=== PATIENT | female | born 1950 | race Caucasian/White ===

== ENCOUNTER 2018-07-20 12:27 | Emergency (ER) | payer OTHER ==
[2018-07-20 12:35] VITALS: BMI 28.3
--- NOTE | 2018-07-20 12:41 | PDOC ---
History of Present Illness - General Chief Complaint: Pain, Acute Stated Complaint: SHOULDER INJURY Time Seen by Provider: 07/20/18 12:40 History Source: Patient Exam Limitations: No Limitations - History of Present Illness Initial Comments: Pt is a 67 yo F, with PMH of NIDDM, HLD, RA, and osteoporosis, who is presenting via EMS with complaints of R shoulder pain. Pt was throwing a wet piece of laundry over the door, when she felt her shoulder "pop out". She denies any trauma or falls. Pt states she has had this happen to her R shoulder ~5 times, but has always had it reduced at another hospital as she just moved to [place]. Pt states they gave her "a medication to make her sleep" and the shoulder is reduced when she wakes up. Pt denies any recent fevers/chills, headache, vision changes, syncope, chest pain, palpitations, SOB, nausea/ vomiting, abdominal pain, urinary symptoms, diarrhea/constipation, or leg swelling. Social: Pt denies any cigarette, alcohol, or drug use. Pt denies any recent travel or sick contacts. Surgical: no relevant history. Family: no relevant history. 07/20/18 18:27 Past History - Travel Traveled outside of the country in the last 30 days: No Close contact w/someone who was outside of country & ill: No - Past Medical History Allergies/Adverse Reactions: Allergies Allergy/AdvReac Type Severity Reaction Status Date / Time No Known Allergies Allergy Verified 07/20/18 12:31 COPD: No Diabetes: Yes (NIDDM) Hypercholesterolemia: Yes Other medical history: RA - Suicide/Smoking/Psychosocial Hx Smoking History: Never smoked Hx Alcohol Use: No Drug/Substance Use Hx: No Review of Systems - Review of Systems Able to Perform ROS?: Yes Is the patient limited Par[place] proficient: No Constitutional: Yes: Weight Stable. No: Chills, Diaphoresis, Fever, Loss of Appetite, Malaise, Weakness HEENTM: No: Recent change in vision, Nose Pain, Nose Congestion, Throat Pain, Throat Swelling Respiratory: No: Cough, Shortness of Breath Cardiac (ROS): No: Chest Pain, Edema, Irregular Heart Rate, Lightheadedness, Palpitations, Syncope, Chest Tightness ABD/GI: No: Constipated, Diarrhea, Nausea, Poor Appetite, Poor Fluid Intake, Vomiting : No: Burning, Dysuria, Pain, Urgency Musculoskeletal: Yes: See HPI, Joint Pain. No: Back Pain, Joint Swelling, Muscle Pain, Muscle Weakness Integumentary: No: Bruising, Erythema, Lumps, Rash Neurological: No: Headache, Numbness, Paresthesia, Tingling, Weakness, Dizziness Psychiatric: No: Sleep Pattern Change, Change in Appetite Endocrine: No: Increased Urine, Change in Weight Hematologic/Lymphatic: No: Anemia, Blood Clots, Easy Bleeding, Easy Bruising *Physical Exam - Vital Signs Last Vital Signs Temp Pulse Resp BP Pulse Ox 99.3 F 93 H 20 156/87 98 07/20/18 12:32 07/20/18 12:32 07/20/18 12:32 07/20/18 12:32 07/20/18 12:32 - Physical Exam Comments: 07/20/18 18:32 BP 172/90, HR 108, pt afebrile. Pt appears uncomfortable, holding R arm abducted against chest in a cloth sling. Normal body habitus. PE showed pt alert and oriented. 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 R shoulder deformed, no crepitus of clavicle or skin tenting. Strength and sensation of radial, ulnar, and median distributions intact in b/l UEs. Radial pulses intact and strong b/l. Pt cannot move the R arm at the shoulder, but movements of wrist, hand, and fingers intact. Eyes PERRLA, EOMI. Oropharynx without erythema or exudates, no LAD b/l. No nasal congestion, hearing intact. Clear heart sounds, S1/S2, no JVD, b/l pedal edema, or heart murmur. Clear lung sounds, no respiratory distress, wheezes, crackles, or accessory muscle use. No abdominal or CVA tenderness to palpation, no rebound, no guarding. Abdomen soft , non-distended, and with normoactive bowel sounds. Skin without jaundice or rash. Moderate Sedation - Procedure Monitoring Vital Signs: Procedure Monitoring Vital Signs Temperature 99.3 F 07/20/18 12:32 Pulse Rate 93 H 07/20/18 12:32 Respiratory Rate 20 07/20/18 12:32 Blood Pressure 156/87 07/20/18 12:32 O2 Sat by Pulse Oximetry (%) 98 07/20/18 12:32 Post-procedure vitals: HR 90, BP 132/92, RR 18, O2 97% on RA. 07/20/18 18:32 - Post Procedure Assessment Tolerated procedure well: Yes Was a reversal agent used?: No Patient evaluation: Awake, alert and oriented, Vital signs reviewed, Cardiopulmonary exam normal, Pain controlled Printed Discharge Instructions given: Yes Procedures - Joint Reduction Right Joint Reduction Site: right: Shoulder Pre-Procedure NV Exam: normal Conscious Sedation: Yes Reduction Attempts: 3 (2 with morphine, 1 under sedation) Anesthetic: 1% Lidocaine (4 cc lidocaine into joint space) Amount (mL): 4 Anesthesia: Fentanyl (25 mg) Procedure: Traction Counter Traction Post-Procedure NV Exam: normal Complications: No Post Joint Reduction Film: joint reduced Splint: Yes Immobilized: No Medical Decision Making - Medical Decision Making Pt was seen at bedside, also will be seen by attending Dr. Hawkins. Pt presenting via EMS with complaints of R shoulder pain. Pt was throwing a wet piece of laundry over the door, when she felt her shoulder "pop out". She denies any trauma or falls. Pt states she has had this happen to her R shoulder ~5 times, but has always had it reduced at another hospital as she just moved to [place]. Pt states they gave her "a medication to make her sleep" and the shoulder is reduced when she wakes up. Pt denies any recent fevers/chills, headache, vision changes, syncope, chest pain, palpitations, SOB, nausea/ vomiting, abdominal pain, urinary symptoms, diarrhea/constipation, or leg swelling. BP 172/90, HR 108, pt afebrile. Pt appears uncomfortable, holding R arm abducted against chest in a cloth sling. Normal body habitus. PE showed pt alert and oriented. 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 R shoulder deformed, no crepitus of clavicle or skin tenting. Strength and sensation of radial, ulnar, and median distributions intact in b/l UEs. Radial pulses intact and strong b/l. Pt cannot move the R arm at the shoulder, but movements of wrist, hand, and fingers intact. Eyes PERRLA, EOMI. Oropharynx without erythema or exudates, no LAD b/l. No nasal congestion, hearing intact. Clear heart sounds, S1/S2, no JVD, b/l pedal edema, or heart murmur. Clear lung sounds, no respiratory distress, wheezes, crackles, or accessory muscle use. No abdominal or CVA tenderness to palpation, no rebound, no guarding. Abdomen soft , non-distended, and with normoactive bowel sounds. Skin without jaundice or rash. Considering R anterior shoulder dislocation (anterior vs posterior) vs fracture vs rotator cuff tendon injury. Ordered R shoulder x-ray to r/o fracture dislocation. Provided 4 mg IV morphine for improvement of pain. Will continue to reassess pt and monitor for symptomatic improvement. 07/20/18 13:31 X-ray showed R anterior shoulder dislocation with no obvious fractures. Pt signed consent form for procedural sedation and shoulder reduction. Procedural sedation successful with 25 mg IV fentanyl and 70 mg IV ketamine. Please see sedation note and reduction note. Post reduction x-ray showed successful reduction, possible hill-sachs on humeral head. Pt comfortable in sling. Pts daughter in department to drive pt home. Pt can be discharged to home with follow-up. Pt advised to follow-up with PCP in 1-2 days and has been referred to orthopedics (Dr. Pearce). Strict return precautions provided with pt understanding. 07/20/18 16:58 07/20/18 18:25 07/20/18 18:33 *DC/Admit/Observation/Transfer Diagnosis at time of Disposition: Shoulder dislocation Qualifiers: Encounter type: initial encounter Laterality: right Qualified Code(s): S43.004A - Unspecified dislocation of right shoulder joint, initial encounter - Discharge Dispostion Disposition: HOME Condition at time of disposition: Improved Decision to Admit order: No - Referrals Referrals: Dusty Pearce MD [Staff Physician] - Meir Lopez MD [Primary Care Provider] - [facility] [Provider Group] - Patient Instructions Printed Discharge Instructions: DI for Shoulder Dislocation, DI for Moderate Sedation Additional Instructions: You were seen in the ER today for a shoulder dislocation. The results of your imaging today showed a dislocation of your right shoulder, which improved after we reduced it. Please follow-up with your primary care doctor and Dr. Pearce within 1-2 days to discuss your visit and make sure your symptoms have improved. Please continue to use the sling until you can see orthopedics. Please return to the ER if you have any worsening pain, numbness/coldness/ weakness of your right arm or hand, development of fevers or chills, loss of consciousness, inability to tolerate food or fluids, or any other concerns. You can take tylenol at home with warm or cold compresses as needed for pain. - Post Discharge Activity
[2018-07-20] MEDS ORDERED: morphine SULFATE 4 MG/ML VIAL IVPUSH ONE (12:51)
[2018-07-20] MEDS ORDERED: morphine CARPU-JECT 2 MG/1 ML DISP.SYRIN IM ONE (13:11)
[2018-07-20] MEDS ORDERED: morphine CARPU-JECT 4 MG/1 ML DISP.SYRIN IVPUSH ONE ×2 (13:29→14:38)
[2018-07-20] MEDS ORDERED: morphine SULFATE 4 MG/ML VIAL ONE ×2 (13:30→14:40)
[2018-07-20] MEDS ORDERED: LIDOCAINE HCL 1%, 10 MG/ML (20ML VIAL) ONE (14:21)
--- NOTE | 2018-07-20 14:44 | PDOC ---
Attending Attestation - Resident Resident Name: Brittny Fernandez - ED Attending Attestation I have performed the following: I have examined & evaluated the patient, The case was reviewed & discussed with the resident, I agree w/resident's findings & plan, Exceptions are as noted - HPI HPI: 07/21/18 12:28 agree with resident HPI - Physicial Exam PE: 07/20/18 16:07 GENERAL: Awake, alert, and fully oriented, appears uncomfortable EYES: PERRLA, EOMI, sclera anicteric, conjunctiva clear ENT: Oropharynx clear without exudates. Moist mucosa NECK: Normal ROM, supple, no lymphadenopathy, JVD, or masses LUNGS: Breath sounds equal, clear to auscultation bilaterally. No wheezes, and no crackles HEART: Regular rate and rhythm, normal S1 and S2, no murmurs, rubs or gallops ABDOMEN: Soft, nontender, normoactive bowel sounds. No guarding, no rebound. No masses EXTREMITIES: RUE with shoulder deformity. Unable to range at R shoulder. 2+ radial pulse. Normal sensation and strength to distal RUE. No ttp or deformity over AC joint. NEUROLOGICAL: Normal speech, cranial nerves intact. Intact sensation over R deltoid SKIN: Warm, Dry, normal turgor, no rashes or lesions noted. - Medical Decision Making 07/20/18 16:19 67yo F hx shoulder dislocation x5 presents to the ED with R shoulder dislocation. RUE with 2+ radial pulse and normal sensation and strength distally After intra-articular lidocaine with 8mg IV morphine, attempted DAVOS technique , however due to RA, pt was not able to bring wrists together Attempted downward tract and external rotation, but due to significant pain, we decided to do moderate sedation Pt was given fentanyl 25mcg as well as ketamine 75mg with good response Monitored with end tidal CO2 After traction/counter traction, shoulder reduced successfully. RUE placed in sling, 2+ radial pulse and normal strenth and sensation in RUE Pt awake within minutes after reduction, saying she feels much better Post reduction film on my read with good reduction Vitals are stable, pt tolerating PO Given referral to ortho and PMD, return precautions given as well I discussed the physical exam findings, ancillary test results and final diagnoses with the patient. I answered all of the patient's questions. The patient was satisfied with the care received and felt comfortable with the discharge plan and treatment plan. The patient will call their primary care physician within 24 hours to arrange follow-up and will return to the Emergency Department with any new, persistent or worsening symptoms. Stable for DC home
[2018-07-20] MEDS ORDERED: KETAMINE HCL 200 MG/20 ML VIAL IVPUSH ONE (15:00)
[2018-07-20] MEDS ORDERED: KETAMINE HCL 200 MG/20 ML VIAL ONE (15:12)
[2018-07-20 17:42] VITALS: BP 132/92; PULSE 90
[2018-07-20 19:27] VITALS: TEMP 99.2
== END 2018-07-20 17:35 | disposition home or self-care (01) ==
LOC: JER 12:27
PROC: 0RSJXZZ Reposition Right Shoulder Joint, External Approach (ICD-10-PCS; principal; 2018-07-20)
DX: M24.411 Recurrent dislocation, right shoulder (principal); X50.0XXA Overexertion from strenuous movement or load, initial encounter; Y93.89 Activity, other specified; Y92.038 Other place in apartment as the place of occurrence of the external cause; Y99.8 Other external cause status; E11.9 Type 2 diabetes mellitus without complications; E78.5 Hyperlipidemia, unspecified; M06.80 Other specified rheumatoid arthritis, unspecified site; M19.90 Unspecified osteoarthritis, unspecified site
CPT/HCPCS: 23650; 73030-TC-RT-FY; 96374; 96375; 96376; 99283-25

== ENCOUNTER 2019-01-15 06:06 | Inpatient (IN) | payer OTHER ==
[2019-01-14 11:38] VITALS: BMI 26.7
[2019-01-15] MEDS ORDERED: DEXAMETHASONE SOD PHOSPHATE/PF 10 MG/ML SDV ONE (07:33)
[2019-01-15] MEDS ORDERED: ROPIVACAINE HCL 0.5% 30ML VIAL ONE (07:33)
[2019-01-15] MEDS ORDERED: MIDAZOLAM HCL 2 MG/2 ML SINGLE DOSE VIAL ONE ×3 (07:34→07:55)
[2019-01-15] MEDS ORDERED: EPHEDRINE SULFATE/0.9% NACL/PF 50 MG/10 ML SYRINGE NR ONE (07:50)
[2019-01-15] MEDS ORDERED: SUCCINYLCHOLINE CHLORIDE 200 MG/10 ML SYRINGE ONE (07:50)
[2019-01-15] MEDS ORDERED: PROPOFOL 20 ML ONE (07:50)
[2019-01-15] MEDS ORDERED: LIDOCAINE HCL/PF 2% SDV 5ML VIAL ONE (07:51)
[2019-01-15] MEDS ORDERED: ROCURONIUM BROMIDE 50 MG/5 ML SYRINGE ONE (07:51)
--- NOTE | 2019-01-15 08:15 | HP ---
Satellite [facility] - Chief Complaint Chief Complaint: right shoulder pain History of Present Illness: right shoulder OA History Source: Patient Limitations to Obtaining History: No Limitations - Past Medical History Allergies/Adverse Reactions: Allergies Allergy/AdvReac Type Severity Reaction Status Date / Time No Known Allergies Allergy Verified 01/15/19 06:30 - Current Medications Current Medications: Home Medications Medication Instructions Recorded Sitagliptin Phos/Metformin HCl 1 each PO BID 01/14/19 [Janumet 50-1,000 mg Tablet] Atorvastatin Ca [Lipitor] 80 mg PO HS 01/15/19 Fenofibrate,Micronized 134 mg PO DAILY 01/15/19 [Fenofibrate] Satellite Physical Exam - Physical Examination Vital Signs: Vital Signs Period Temp Pulse Resp BP Sys/Sweet Pulse Ox Last 24 Hr 97.7 F 76 18 125/63 General Appearance: Well Nourished ENT: Clear Lung: Clear to auscultation Heart: Regular rate & rhythm Breasts: Soft Abdomen: Soft Extremities: No edema Satellite Impression/Plan - Impression/Plan Impression: right shoulder pain, OA Operative Procedure: right reverse Total shoulder replacement Date to be Performed: 01/15/19
[2019-01-15] MEDS ORDERED: ceFAZolin SODIUM 1 GM VIAL IVPB ONE (08:35)
[2019-01-15] MEDS ORDERED: ONDANSETRON 4 MG/2 ML VIAL IVPUSH PRN (08:36)
[2019-01-15] MEDS ORDERED: ceFAZolin SODIUM 1 GM VIAL ONE ×2 (08:37→15:17)
[2019-01-15] MEDS ORDERED: DEXAMETHASONE SOD PHOSPHATE 4 MG/1 ML VIAL ONE (08:40)
--- NOTE | 2019-01-15 10:12 | OP ---
Operative Note - Note: Operative Date: 01/15/19 Pre-Operative Diagnosis: right shoulder arthritis Operation: right reverse Total Shoulder Replacement Implants: [employer] Reverse Total Shoulder Replacement: size 32 Glenosphere, 9mm stem, size 4 base plate, 6mm polyethylene Surgeon: Nilay Cabello Estimator Project Manager: Reji Neely Anesthesiologist/LENS SHAPER GRINDER: Fermín Garner Anesthesia: General, Local Specimens Removed: humeral head Estimated Blood Loss (mls): 100 Drains, Volume Out (mls): 0 Blood Volume Replaced (mls): 0 Fluid Volume Replaced (mls): 1,000 Operative Report Dictated: Yes
[2019-01-15] MEDS ORDERED: ACETAMINOPHEN INJECTION 100 ML IVPB ONE (10:29)
[2019-01-15] MEDS: LACTATED RINGERS SOLUTION 1,000 ML IV SCH (10:45)
[2019-01-15] MEDS: ACETAMINOPHEN 1000 MG/100 ML VIAL (NON FORMULARY) IVPB ONE ×2 (11:15→15:56)
--- NOTE | 2019-01-15 13:31 | SPEC ---
DATE OF OPERATION: 01/15/2019 PREOPERATIVE DIAGNOSIS: Right shoulder glenohumeral osteoarthritis. POSTOPERATIVE DIAGNOSIS: Right should glenohumeral osteoarthritis. PROCEDURE: Right reverse total shoulder replacement. SURGEON: Brissa Tamayo MD FOOTBALL PAD REPAIRER: DIONE Joiner ANESTHESIOLOGIST: Fermín Garner MD ANESTHESIA: Right interscalene block with LMA anesthesia. DRAINS: None. COMPLICATIONS: None. BLOOD LOSS: 100 mL. BLOOD GIVEN: None. SPECIMEN: Humeral head. INDICATION: This patient is a 68-year-old female with a preoperative diagnosis of severe right shoulder glenohumeral osteoarthritis. After understanding the potential risk, complications, alternatives, and benefits of surgical versus nonsurgical treatment. The patient elected to proceed with the procedure. DESCRIPTION OF PROCEDURE: The patient was brought into the operating room, peripheral IV placed and IV sedation given. Ancef 2 g were given. A right interscalene block was performed, and general anesthesia was induced. She was placed into the beach chair position with ample padding throughout. The right upper extremity was prepped and draped in a sterile fashion. A deltopectoral approach incision was marked out using the coracoid and mid aspect of the proximal humerus as landmarks. The incision was made with the No. 15 scalpel blade. Subcutaneous hemostasis was achieved with a Bovie cautery. Dissection was done through the superficial fascia. Blunt dissection was done with my finger in the deltopectoral interval. The cephalic vein was retracted medially. The Gelpi self-retaining retractors were placed into the wound. I found the conjoined tendon off the coracoid and used the Bovie to incise lateral to it. I was then able to cut down to bone and preserve the medial and lateral capsular flaps. The rotator cuff subscapularis was very deficient. I then peeled the soft tissues, including the anterior aspect of the deltoid insertion off the humerus. The biceps tendon was seen to be frayed, degenerated out of its groove, and therefore I did a biceps tenolysis. Appropriate Fukuda and pickle-fork retractors were placed into the wound, exposing the proximal humerus. I was able to easily dislocate it anteriorly. It was extremely arthritic. Next, using the external guide and a broach, I used the oscillating saw to do a cut at the articular margin. Osteophytes were removed with the rongeur. Some soft tissue was removed with the Bovie. I was able to expose the proximal humerus quite well. Next, using the standard technique, using the [employer] Reverse Total Shoulder Replacement System, we used first the starting awl and then the sequential hand broaches until we had cortical chatter. Then we used the humeral stem-shape broaches and mallet. We eventually seated a 15-size stem that had excellent cortical contact and was very stable throughout. We did not need to use the calcar reamer as the humeral cut was at the right angle. Next, our attention was turned to the glenoid. The Bovie was used to remove soft tissue, including some capsular attachments and the labrum. Retractors were placed into the wound to retract the humerus and expose the glenoid. With excellent direct visualization, we then put on the glenoid glenosphere, lining it up appropriately and put in the 3.2-mm guidewire. We went through 2 cortices. We then used the guidewire to do the glenoid reamer. We were able to ream the glenoid until we got bleeding subchondral bone. More bone was taken inferiorly than superiorly, but it was concentric. The guidewire was then removed, and we put on the actual 28-mm glenoid baseplate, held it in place with a 28-mm central screw. Then using the typical standard technique, we put in superior, inferior, and posterior screws, which were 28, 28, and 16 mm in length, respectively. We had excellent compression of the glenoid baseplate against the glenoid and overall concentric fit. Next, we put on a 32-mm glenosphere. This was the actual implant, impacted in place, and it was quite stable. Next, our attention was turned to the humerus. We cleaned up the humeral shaft, put in an actual size-9 humeral short-stem press-fit porous-coated stem and used the mallet to put it down to the appropriate level. A 4-mm baseplate and 6-mm polyethylene. We then trialed the size of the humeral glenosphere, and it ended up being a 32-mm implant. It was extremely stable. In fact, it was very difficult to dislocate. Next, this trial was removed, and the actual 36-mm humeral glenosphere was placed on, it was reduced, and was extremely stable throughout. The area was copiously irrigated and washed out. The capsule was closed anteriorly with several No. 1 Ti-Cron sutures, the deep fascial layer closed with No. 1 Ti-Cron, and the superficial deltoid fascia closed with 0 Vicryl suture. A 2-0 Vicryl was used to close the deep dermal layer, and final skin reapproximation was done with a running subcuticular 3-0 V-Loc suture. The area was then washed and dried, covered with a 10-inch Aquacel dressing. The patient was extubated. There was total blood loss of 100 mL. There were no complications during the case. The shoulder immobilizer was placed in the operating room, and she was brought to the regular recovery room in stable condition. Total surgical time was 1 hour. BRISSA TAMAYO M.D. [id number]
[2019-01-15] MEDS: CEFAZOLIN 2 GM/D5W 2 GM/50 ML ML IVPB SCH (15:30)
[2019-01-15] MEDS ORDERED: CEFAZOLIN 2 GM in DEXTROSE 5%-WATER - 50 ML IVPB SCH (16:00)
[2019-01-15] MEDS: oxyCODONE HCL 5 MG TABLET PO PRN (17:33)
[2019-01-15] MEDS ORDERED: PATIENT'S OWN MEDICATION (NON-FORMULARY) (Sitagliptin Phos/Metformin Hcl [Janumet 50-1,000 PO SCH ×3 (22:00)
[2019-01-15] MEDS ORDERED: ATORVASTATIN CA 80 MG TABLET (FP) PO SCH (22:00)
[2019-01-16] MEDS: CEFAZOLIN 2 GM/D5W 2 GM/50 ML ML IVPB SCH ×2 (00:17→08:46)
[2019-01-16] MEDS: oxyCODONE HCL 5 MG TABLET PO PRN ×4 (05:22→14:26)
[2019-01-16] MEDS: LACTATED RINGERS SOLUTION 1,000 ML IV SCH ×2 (05:26→08:45)
--- NOTE | 2019-01-16 09:26 | PN ---
Progress Note (short form) - Note Progress Note: Ortho Pt seen and examined s/p right reverse TSA pod #1 Selected Entries 01/16/19 08:54 Temperature 98 F Pulse Rate 77 Respiratory 18 Rate Blood Pressure 106/72 dressing c/d/i, good rom of elbow, wrist and hand nvi a/p PT pain control d/c home today f/u in 1 week
--- NOTE | 2019-01-16 09:27 | DS ---
Physical Examination Vital Signs: Vital Signs Temperature 98 F 01/16/19 08:54 Pulse Rate 77 01/16/19 08:54 Respiratory Rate 18 01/16/19 08:54 Blood Pressure 106/72 01/16/19 08:54 O2 Sat by Pulse Oximetry (%) 98 01/15/19 21:00 Discharge Summary Reason For Visit: OSTEOARTHRITIS Procedures: Principal: right reverse TSA Hospital Course: admitted for elective right reverse TSA, post- op course as per protocol, stable for d/c Condition: Good - Instructions Diet, Activity, Other Instructions: Post -op Instruction Sheet - Shoulder Surgery - You have been placed in a sling. As long as you are wearing this, your shoulder is well protected. You may come out of the sling to dress , or do exercises as directed. You may bend and straighten the elbow, and move your wrist and fingers. Please sleep with the sling on. You may find it more comfortable to sleep with a small pillow behind your elbow, or in a recliner. To wash your armpit, you may lean slightly forward and let your arm dangle slightly away from your side and wash with a washcloth. - Use an ice bag/pack on the shoulder for 15 minutes every 2 hours. - Pain medication was sent to your Pharmacy. - Keep your dressing clean and dry. Please call the office to make an appointment for 1 week after surgery. Your dressing will be removed at that time. - No Lifting. - Starting 1-2 days after surgery, you may take your arm out of the sling 3 times a day to bend and straighten your elbow and wrist to prevent stiffness. - Please call the office at [phone] if there are any questions or concerns. Referrals: Nilay Cabello MD [Staff Physician] - - Home Medications Comprehensive Discharge Medication List: Ambulatory Orders Sitagliptin Phos/Metformin HCl [Janumet 50-1,000 mg Tablet] 1 each PO BID Atorvastatin Ca [Lipitor] 80 mg PO HS 01/15/19 Fenofibrate,Micronized [Fenofibrate] 134 mg PO DAILY 01/15/19 Hydrocodone/Acetaminophen [Hydrocodone-Acetamin 5-325 mg] 1 each PO Q6H #40 tablet MDD 4 01/15/19
[2019-01-16] MEDS ORDERED: PT OWN MED DRAWER 7, Y5N ONE (09:28)
[2019-01-16] MEDS ORDERED: FENOFIBRIC ACID 135 MG CAP PO SCH (10:00)
[2019-01-16 12:18] LABS: HEMATOCRIT 31.2 % (32.4-45.2); HEMOGLOBIN 10.6 GM/dL (10.7-15.3); MCH 30.3 pg (25.7-33.7); MEAN CELL VOLUME 89.2 fl (80-96); MEAN PLT VOLUME 8.9 fl (7.5-11.1); PLATELET COUNT 171 K/MM3 (134-434); RDW 13.9 % (11.6-15.6)
[2019-01-16] MEDS ORDERED: PATIENT'S OWN MEDICATION (NON-FORMULARY) (Sitagliptin Phos/Metformin Hcl [Janumet 50-1,000 PO SCH (12:45)
[2019-01-16 14:23] VITALS: BP 112/62; PULSE 75; TEMP 98.1
--- NOTE | 2019-01-17 18:07 | PATH ---
Surgical Pathology Report Patient Name: CRISTÓBAL IYER Med. Rec. #: [id number] /Age/Gender: 1950 (Age: 68) / F Account: <[id number]> Location: AMBULATORY SURG Taken: 01/15/2019 Received: 01/15/2019 Reported: 01/17/2019 Physicians: Nilay Cabello M.D. Specimen(s) Received HUMERAL HEAD Clinical History Right shoulder osteoarthritis Final Diagnosis BONE, HUMERAL HEAD, RIGHT, REVERSE TOTAL SHOULDER REPLACEMENT: BONE WITH DEGENERATIVE JOINT DISEASE. Electronically Signed Carrol Thapa M.D. Gross Description Received in formalin, labeled "humeral head," is a 4.5 x 4.0 x 4.0 cm. humeral head. The margin of resection is smooth. There is a 4 cm in greatest dimension area of eburnation present. The remaining articular surface is juarez-brown and focally granular. The underlying trabecular bone is yellow and hard. A pharmaceutical representative section is submitted in one cassette, following decalcification. ERIN/01/15/2019 dean/01/15/2019
== END 2019-01-16 15:48 | disposition home or self-care (01) | DRG 483 ==
LOC: JSAMEDAYSX 06:06 → UNDOADMIN 06:06 → JASUSAT 06:06 → EDSTATUS 08:00 → J6W 15:30 → JSAMEDAYSX 15:30 → J6W 15:31 → J6S 15:31 → JASUSAT 18:14 → J6S 18:14
PROVIDERS: ADMIT Orthopaedic Surgery; ATTEND Orthopaedic Surgery
PROC: 0RPJ0JZ Removal of Synthetic Substitute from Right Shoulder Joint, Open Approach (ICD-10-PCS; 2019-01-15)
PROC: 0RRJ0JZ Replacement of Right Shoulder Joint with Synthetic Substitute, Open Approach (ICD-10-PCS; principal; 2019-01-15 08:00)
DX: M19.011 Primary osteoarthritis, right shoulder (principal); E11.9 Type 2 diabetes mellitus without complications
CPT/HCPCS: 36415; 73030-TC-RT-FY; 82962; 85027; 94760; 97116-GP; 97161-GP; J0131